=== PATIENT | female | born 1950 | race Caucasian/White ===

== ENCOUNTER 2017-07-30 00:13 | Inpatient (IN) | payer MEDICARE ==
[~2017-07-30] VITALS: Ht 165.1 cm; Wt 105.0 kg
[2017-07-30] VITALS (10 sets, daily range): BP systolic 100–131; BP diastolic 51–88; PULSE 58–74; RESP 16–22; TEMP 97.3–98.8; O2SAT 93–100
[~2017-07-30 00:13] MED LIST: AMLO5TAB2 PO; ASPI81TA23 PO; CARB45TA PO; GABA100C4 PO; GLIM2TAB PO; LEVO50TA4 PO; LOSA100T PO; METF1000 PO; METO50TA PO; MULTTAB67 PO; OXYM30SP8 EACH NARE; SERT-129 PO; SITA1TAB2 PO; ZOCO20TA PO
[2017-07-30] MEDS ORDERED: SODIUM CHLORIDE 0.9% FLUSH 5 ML FLUSH IV FLUSH PRN (00:45)
[2017-07-30 01:13] LABS: AUTOMATED NEUTROPHIL # 7.9 TH/MM3 (1.8-7.7); BASOPHIL # 0.1 TH/MM3 (0-0.2); BASOPHIL % 0.6 % (0.0-2.0); EOSINOPHIL % 0.5 % (0.0-4.0); HEMATOCRIT 33.5 % (35.0-46.0); HEMO FLAGS DIFF FINAL; LYMPH % 8.2 % (9.0-44.0); LYMPHOCYTE # 0.8 TH/MM3 (1.0-4.8); MEAN CELL VOLUME 87.6 FL (80.0-100.0); MEAN CORPUSCULAR HEMOGLOBIN 28.9 PG (27.0-34.0); NEUT % 85.7 % (16.0-70.0); PLATELET COUNT 279 TH/MM3 (150-450); RED BLOOD COUNT 3.82 MIL/MM3 (4.00-5.30); RED CELL DISTRIBUTION WIDTH 16.8 % (11.6-17.2); WHITE BLOOD COUNT 9.2 TH/MM3 (4.0-11.0)
--- NOTE | 2017-07-30 01:20 | PD ---
HPI Chief Complaint: Altered Mental Status Time Seen by Provider: 00:19 Travel History International Travel<30 days: No Contact w/Intl Traveler<30days: No Traveled to known affect area: No History of Present Illness HPI The patient is a 67-year-old female who presents emergency department via EMS for altered mental status. According to EMS the patient had altered mental status at home, was noted to have a blood glucose of 30 was administered D50 prior to arrival. Upon arrival the patient was GCS of 15 and answering questions appropriately. Family members at bedside state the patient was recently evaluated at the [facility] for cirrhosis of the liver. She was prescribed lactulose to take for hepatic encephalopathy, however, did not take it earlier tonight because she did not feel well and did not want to get out of bed to go to the bathroom for possible diarrhea. The patient does take multiple medications for diabetes including metformin and an oral sulfonylurea. The patient states she took her oral sulfonylurea this morning and this evening, but denies any history of recurrent hypoglycemia with her medications. The patient now states that she feels well, wants to return home. PFSH Past Medical History Narrative Medical Diabetes, cirrhosis, ascites Past Surgical History Narrative Surgical Previous paracentesis Social History Tobacco Use: No Allergies-Medications (Allergen,Severity, Reaction): Coded Allergies: cephalexin (Unverified Allergy, Severe, Rash, 04/15/17) penicillin G (Unverified Allergy, Severe, Hives, 04/15/17) acetaminophen (Unverified Adverse Reaction, Severe, NAUSEA, 04/15/17) codeine (Unverified Adverse Reaction, Severe, NAUSEA, 04/15/17) oxycodone (Unverified Adverse Reaction, Severe, NAUSEA, 04/15/17) Reported Meds & Prescriptions Reported Meds & Active Scripts Active Reported Zocor (Simvastatin) 20 Mg Tab 20 Mg PO DAILY Sertraline (Sertraline HCl) 100 Mg Tab 100 Mg PO DAILY Multiple Vitamin 1 Tab 1 Tab PO DAILY Metoprolol Tartrate 50 Mg Tab 50 Mg PO BID Metformin (Metformin HCl) 1,000 Mg Tab 1,000 Mg PO BIDPC With meals Losartan (Losartan Potassium) 100 Mg Tab 100 Mg PO DAILY Levothyroxine (Levothyroxine Sodium) 50 Mcg Tab 50 Mcg PO DAILY Januvia (Sitagliptin Phosphate) 100 Mg Tab 100 Mg PO DAILY Glimepiride 2 Mg Tab 2 Mg PO BIDAC Gabapentin 100 Mg Cap 100 Mg PO HS Feosol (Iron,Carbonyl) 45 Mg Tablet 65 Mg PO DAILY Nasal [place] (Oxymetazoline HCl) 0.05 % Spr 1 [place] EACH NARE DAILY Aspirin EC (Aspirin) 81 Mg Tabdr 81 Mg PO DAILY Amlodipine (Amlodipine Besylate) 5 Mg Tab 5 Mg PO DAILY Review of Systems Except as stated in HPI: all other systems reviewed are Neg General / Constitutional: No: Fever Cardiovascular: No: Chest Pain or Discomfort Respiratory: No: Shortness of Breath Gastrointestinal: No: Nausea, Vomiting, Abdominal Pain Musculoskeletal: No: Weakness Neurologic: Positive: Change in Mentation Physical Exam Narrative GENERAL: Awake, alert, pleasant 67-year-old female who appears her stated age and is in no acute respiratory distress. SKIN: Focused skin assessment warm/dry. HEAD: Atraumatic. Normocephalic. EYES: Pupils equal and round. No scleral icterus. No injection or drainage. ENT: No nasal bleeding or discharge. Mucous membranes pink and moist. NECK: Trachea midline. No JVD. CARDIOVASCULAR: Regular rate and rhythm. No murmur appreciated. RESPIRATORY: No accessory muscle use. Clear to auscultation. Breath sounds equal bilaterally. GASTROINTESTINAL: Abdomen soft, obese, no rebound tenderness. MUSCULOSKELETAL: No obvious deformities. No clubbing. No cyanosis. No edema. NEUROLOGICAL: Awake and alert. No obvious cranial nerve deficits. Motor grossly within normal limits. Normal speech. Patient is alert and oriented 5. Follows commands without difficulty. Nonfocal. PSYCHIATRIC: Appropriate mood and affect; insight and judgment normal. Data Data Last Documented VS Vital Signs Date Time Temp Pulse Resp B/P (MAP) Pulse Ox O2 Delivery O2 Flow Rate FiO2 07/30/17 01:19 98 Room Air 07/30/17 00:30 62 20 117/61 (79) Orders Orders Ammonia (07/30/17 00:45) Complete Blood Count With Diff (07/30/17 00:45) Comprehensive Metabolic Panel (07/30/17 00:45) Urinalysis - C+S If Indicated (07/30/17 00:45) Blood Glucose (07/30/17 00:45) Ecg Monitoring (07/30/17 00:45) Iv Access Insert/Monitor (07/30/17 00:45) Oximetry (07/30/17 00:45) Sodium Chloride 0.9% Flush (Ns Flush) (07/30/17 00:45) Admit Order (Ed Use Only) (07/30/17 02:36) Labs Laboratory Tests Test 07/30/17 00:57 White Blood Count 9.2 TH/MM3 Red Blood Count 3.82 MIL/MM3 Hemoglobin 11.0 GM/DL Hematocrit 33.5 % Mean Corpuscular Volume 87.6 FL Mean Corpuscular Hemoglobin 28.9 PG Mean Corpuscular Hemoglobin Concent 33.0 % Red Cell Distribution Width 16.8 % Platelet Count 279 TH/MM3 Mean Platelet Volume 8.2 FL Neutrophils (%) (Auto) 85.7 % Lymphocytes (%) (Auto) 8.2 % Monocytes (%) (Auto) 5.0 % Eosinophils (%) (Auto) 0.5 % Basophils (%) (Auto) 0.6 % Neutrophils # (Auto) 7.9 TH/MM3 Lymphocytes # (Auto) 0.8 TH/MM3 Monocytes # (Auto) 0.5 TH/MM3 Eosinophils # (Auto) 0.0 TH/MM3 Basophils # (Auto) 0.1 TH/MM3 CBC Comment DIFF FINAL Differential Comment Blood Urea Nitrogen 51 MG/DL Creatinine 1.53 MG/DL Random Glucose 60 MG/DL Total Protein 6.8 GM/DL Albumin 3.0 GM/DL Calcium Level 9.1 MG/DL Alkaline Phosphatase 49 U/L Aspartate Amino Transf (AST/SGOT) 24 U/L Alanine Aminotransferase (ALT/SGPT) 23 U/L Total Bilirubin 0.2 MG/DL Sodium Level 128 MEQ/L Potassium Level 5.2 MEQ/L Chloride Level 96 MEQ/L Carbon Dioxide Level 22.9 MEQ/L Anion Gap 9 MEQ/L Estimat Glomerular Filtration Rate 34 ML/MIN Ammonia 16 MCMOL/L [facility] Medical Decision Making Medical Screen Exam Complete: Yes Emergency Medical Condition: Yes Medical Record Reviewed: Yes Interpretation(s) Laboratory Tests Test 07/30/17 00:57 White Blood Count 9.2 TH/MM3 Red Blood Count 3.82 MIL/MM3 Hemoglobin 11.0 GM/DL Hematocrit 33.5 % Mean Corpuscular Volume 87.6 FL Mean Corpuscular Hemoglobin 28.9 PG Mean Corpuscular Hemoglobin Concent 33.0 % Red Cell Distribution Width 16.8 % Platelet Count 279 TH/MM3 Mean Platelet Volume 8.2 FL Neutrophils (%) (Auto) 85.7 % Lymphocytes (%) (Auto) 8.2 % Monocytes (%) (Auto) 5.0 % Eosinophils (%) (Auto) 0.5 % Basophils (%) (Auto) 0.6 % Neutrophils # (Auto) 7.9 TH/MM3 Lymphocytes # (Auto) 0.8 TH/MM3 Monocytes # (Auto) 0.5 TH/MM3 Eosinophils # (Auto) 0.0 TH/MM3 Basophils # (Auto) 0.1 TH/MM3 CBC Comment DIFF FINAL Differential Comment Blood Urea Nitrogen 51 MG/DL Creatinine 1.53 MG/DL Random Glucose 60 MG/DL Total Protein 6.8 GM/DL Albumin 3.0 GM/DL Calcium Level 9.1 MG/DL Alkaline Phosphatase 49 U/L Aspartate Amino Transf (AST/SGOT) 24 U/L Alanine Aminotransferase (ALT/SGPT) 23 U/L Total Bilirubin 0.2 MG/DL Sodium Level 128 MEQ/L Potassium Level 5.2 MEQ/L Chloride Level 96 MEQ/L Carbon Dioxide Level 22.9 MEQ/L Anion Gap 9 MEQ/L Estimat Glomerular Filtration Rate 34 ML/MIN Ammonia 16 MCMOL/L Differential Diagnosis Differential diagnoses includes hypoglycemia, medication side effect, soft on area side effect, hepatic encephalopathy, renal sufficiency, hepatic insufficiency. Narrative Course IV was established, labs are drawn and sent, and the patient was placed on cardiac telemetry monitoring and continuous pulse oximetry monitoring. I had a discussion with the patient regarding the fact that she is on oral sulfonylurea and should probably be a 23 hour observation as she has underlying hepatic insufficiency and possibly underlying nephritic insufficiency, and the half- life of her oral sulfonylurea may be anywhere from 8-24 hours. However, patient is adamant that she does not want to stay in the hospital. She was alert and oriented 5, the family wants the patient to stay is a 23 hour off, however, the patient does not want to stay in the hospital. After discussion it was agreed that she would be fed a meal and have Accu-Cheks every hour 3. However, the patient's blood sugar fell to 59 despite eating a large meal. The patient is on a sulfonylurea with hypoglycemia, will need 23 hour observation for blood sugar evaluation every hour until stabilized. Therefore, the patient will be placed intensive care unit as she will need Q1 Accu-Cheks until sugars are stable. I discussed the patient with the activities officer, Dr. Yusuf, who agrees with admission. Physician Communication Physician Communication I discussed the patient Dr. Yusuf who agrees with 23 hour observation. Diagnosis Primary Impression: Hypoglycemia Admitting Information Admitting Physician Requests: Observation Condition: Stable Lyndon Turk MD Jul 30, 2017 01:20
[2017-07-30 01:32] LABS: ALKALINE PHOSPHATASE 49 U/L (45-117); TOTAL BILIRUBIN ADULT 0.2 MG/DL (0.2-1.0)
[2017-07-30 01:38] LABS: ALT (GPT) 23 U/L (10-53); ANION GAP 9 MEQ/L (5-15); AST (GOT) 24 U/L (15-37); BICARBONATE 22.9 MEQ/L (21.0-32.0); BLOOD UREA NITROGEN 51 MG/DL (7-18); CHLORIDE 96 MEQ/L (98-107); GLOMERULAR FILTRATION RATE 34 ML/MIN (>89); POTASSIUM 5.2 MEQ/L (3.5-5.1); SODIUM (NA) 128 MEQ/L (136-145)
[2017-07-30] MEDS ORDERED: BISACODYL 10 MG SUPP RECTAL PRN (03:00)
[2017-07-30] MEDS ORDERED: ONDANSETRON HCL 4 MG/2 ML VIAL IV PUSH PRN (03:00)
[2017-07-30] MEDS ORDERED: DEXTROSE 50% IN WATER 50 ML SYRINGE IV PUSH ONE (03:00)
[2017-07-30] MEDS ORDERED: LACTULOSE SYRUP 20 GM/30 ML CUP PO PRN (03:00)
[2017-07-30] MEDS ORDERED: MAGNESIUM HYDROXIDE SUSP 30 ML CUP PO PRN (03:00)
[2017-07-30] MEDS ORDERED: ACETAMINOPHEN 325 MG TAB PO PRN (03:00)
[2017-07-30] MEDS ORDERED: CHLORHEXIDINE GLUCONATE 2 % 1 PACK (2 CLOTHS) TOP PRN (03:00)
[2017-07-30] MEDS ORDERED: RESP: ALBUTEROL 2.5 MG/IPRATROPIUM 0.5 MG NEB (PRN) INH (03:00)
[2017-07-30] MEDS ORDERED: SODIUM CHLOR 0.9% 1000 ML INJ 1,000 ML IV SCH (03:00)
[2017-07-30] MEDS ORDERED: MISCELLANEOUS NURSING INFORMATION XX SCH (03:00)
[2017-07-30] MEDS ORDERED: GLUCAGON 1 MG/ML VIAL OTHER PRN (03:00)
[2017-07-30] MEDS ORDERED: SENNOSIDES 8.6 MG TAB PO PRN (03:00)
[2017-07-30] MEDS ORDERED: SODIUM CHLORIDE 0.9% FLUSH 10 ML FLUSH IV FLUSH PRN (03:00)
[2017-07-30] MEDS ORDERED: DEXTROSE 50% IN WATER 50 ML VIAL(D50) IV PUSH PRN (03:00)
[2017-07-30] MEDS: CHLORHEXIDINE GLUCONATE 2 % 1 PACK (2 CLOTHS) TOP SCH (04:00)
--- NOTE | 2017-07-30 04:20 | HHI.HP ---
HPI Service Critical Care Medicine Primary Care Physician Boris Shell M.D. Admission Diagnosis hypoglycemia on sulfonylurea Diagnosis: Travel History International Travel<30 Days: No Contact w/Intl Traveler <30 Da: No Traveled to Known Affected Are: No History of Present Illness 67-year-old very pleasant female with nonalcoholic liver cirrhosis, type 2 diabetes presents for altered mental status. According to EMS the patient had altered mental status at home, was noted to have a blood glucose of 30 was administered D50 prior to arrival. Upon arrival the patient was GCS of 15 and answering questions appropriately. Family members at bedside state the patient was recently evaluated at the [facility] for cirrhosis of the liver and is considered to be a liver transplant candidate. She was prescribed lactulose to take for hepatic encephalopathy, however, did not take it earlier tonight because she did not feel well and did not want to get out of bed to go to the bathroom for possible diarrhea. The patient does take multiple medications for diabetes including metformin and an oral sulfonylurea and was told she needs transition to insulin regiment however continues taking her by mouth meds. The patient states she took her oral sulfonylurea this morning and this evening, but denies any history of recurrent hypoglycemia with her medications in the past. In the emergency department she suffered another episode of hypoglycemia requiring D50 injection. Review of Systems Constitutional: COMPLAINS OF: Diaphoretic episodes, Fatigue, DENIES: Fever, Weight gain, Weight loss, Chills, Dizziness, Change in appetite, Night Sweats Endocrine: DENIES: Abnorml menstrual pattern, Heat/cold intolerance, Polydipsia , Polyuria, Polyphagia Eyes: DENIES: Blurred vision, Diplopia, Eye inflammation, Eye pain, Vision loss , Photosensitivity, Double Vision Ears, nose, mouth, throat: DENIES: Tinnitus, Hearing loss, Vertigo, Nasal discharge, Oral lesions, Throat pain, Hoarseness, Ear Pain, Running Nose, Epistaxis, Sinus Pain, Toothache, Odynophagia Respiratory: DENIES: Apneas, Cough, Snoring, Wheezing, Hemoptysis, Sputum production, Shortness of breath Cardiovascular: DENIES: Chest pain, Palpitations, Syncope, Dyspnea on Exertion , PND, Lower Extremity Edema, Orthopnea, Claudication Gastrointestinal: DENIES: Abdominal pain, Black stools, Bloody stools, Constipation, Diarrhea, Nausea, Vomiting, Difficulty Swallowing, Anorexia Genitourinary: DENIES: Abnormal vaginal bleeding, Dysmenorrhea, Dyspareunia, Sexual dysfunction, Urinary frequency, Urinary incontinence, Urgency, Hematuria , Dysuria, Nocturia, Vaginal discharge Musculoskeletal: DENIES: Joint pain, Muscle aches, Stiffness, Joint Swelling, Back pain, Neck pain Integumentary: DENIES: Abnormal pigmentation, Pruritus, Rash, Nail changes, Breast masses, Breast skin changes, Nipple discharge Hematologic/lymphatic: DENIES: Bruising, Lymphadenopathy Immunologic/allergic: DENIES: Eczema, Urticaria Neurologic: COMPLAINS OF: Poor Balance, DENIES: Abnormal gait, Headache, Localized weakness, Paresthesias, Seizures, Speech Problems, Tremor Psychiatric: DENIES: Anxiety, Confusion, Mood changes, Depression, Hallucinations, Agitation, Suicidal Ideation, Homicidal Ideation, Delusions Past Family Social History Allergies: Coded Allergies: cephalexin (Unverified Allergy, Severe, Rash, 04/15/17) penicillin G (Unverified Allergy, Severe, Hives, 04/15/17) acetaminophen (Unverified Adverse Reaction, Severe, NAUSEA, 04/15/17) codeine (Unverified Adverse Reaction, Severe, NAUSEA, 04/15/17) oxycodone (Unverified Adverse Reaction, Severe, NAUSEA, 04/15/17) Past Medical History Diabetes, cirrhosis, ascites Past Surgical History Previous paracentesis Reported Medications Reported Meds & Active Scripts Active Reported Zocor (Simvastatin) 20 Mg Tab 20 Mg PO DAILY Sertraline (Sertraline HCl) 100 Mg Tab 100 Mg PO DAILY Multiple Vitamin 1 Tab 1 Tab PO DAILY Metoprolol Tartrate 50 Mg Tab 50 Mg PO BID Metformin (Metformin HCl) 1,000 Mg Tab 1,000 Mg PO BIDPC With meals Losartan (Losartan Potassium) 100 Mg Tab 100 Mg PO DAILY Levothyroxine (Levothyroxine Sodium) 50 Mcg Tab 50 Mcg PO DAILY Januvia (Sitagliptin Phosphate) 100 Mg Tab 100 Mg PO DAILY Glimepiride 2 Mg Tab 2 Mg PO BIDAC Gabapentin 100 Mg Cap 100 Mg PO HS Feosol (Iron,Carbonyl) 45 Mg Tablet 65 Mg PO DAILY Nasal [place] (Oxymetazoline HCl) 0.05 % Spr 1 [place] EACH NARE DAILY Aspirin EC (Aspirin) 81 Mg Tabdr 81 Mg PO DAILY Amlodipine (Amlodipine Besylate) 5 Mg Tab 5 Mg PO DAILY Active Ordered Medications Current Medications Medications (Trade) Dose Ordered Sig/Gabriela Route PRN Reason Start Time Stop Time Status Last Admin Dose Admin IV Flush (NS Flush) 2 ml UNSCH PRN IV FLUSH FLUSH AFTER USING IV ACCESS 07/30/17 00:45 Amlodipine Besylate (Norvasc) 5 mg DAILY PO 07/30/17 09:00 Aspirin (Ecotrin Ec) 81 mg DAILY PO 07/30/17 09:00 Gabapentin (Neurontin) 100 mg HS PO 07/30/17 21:00 Levothyroxine Sodium (Synthroid) 50 mcg DAILY@0700 PO 07/30/17 07:00 Metoprolol Tartrate (Lopressor) 50 mg BID PO 07/30/17 09:00 Oxymetazoline HCl (Afrin 0.05% [place]) 1 spray DAILY EACH NARE 07/30/17 09:00 Sertraline HCl (Zoloft) 100 mg DAILY PO 07/30/17 09:00 Ferrous Sulfate (Ferrous Sulfate) 325 mg DAILY PO 07/30/17 09:00 Multivitamins (Theragran) 1 tab DAILY PO 07/30/17 09:00 Pravastatin Sodium (Pravachol) 40 mg DAILY PO 07/30/17 09:00 Sodium Chloride (NS Flush) 2 ml UNSCH PRN IV FLUSH FLUSH AFTER USING IV ACCESS 07/30/17 03:00 Sodium Chloride (NS Flush) 2 ml BID IV FLUSH 07/30/17 09:00 Acetaminophen (Tylenol) 650 mg Q6H PRN PO PAIN 1-10 AND/OR FEVER >101F 07/30/17 03:00 Ondansetron HCl (Zofran Inj) 4 mg Q6H PRN IV PUSH NAUSEA OR VOMITING 07/30/17 03:00 Albuterol/ Ipratropium (Duoneb Neb) 1 ampule Q2HR NEB PRN INH WHEEZING 07/30/17 03:00 Miscellaneous Information 1 [id number] XX 07/30/17 03:00 Chlorhexidine Gluconate (Chlorhexidine 2% Cloth) 3 pack Taper DAILY@04 TOP 07/30/17 04:00 07/26/18 03:59 Chlorhexidine Gluconate (Chlorhexidine 2% Cloth) 3 pack UNSCH PRN TOP HYGIENIC CARE 07/30/17 03:00 Senna/Docusate Sodium (Jen-Colace) 1 tab BID PO 07/30/17 09:00 Magnesium Hydroxide (Milk Of Magnesia Liq) 30 ml Q12H PRN PO Mild constipation 07/30/17 03:00 Sennosides (Senokot) 17.2 mg Q12H PRN PO Moderate constipation 07/30/17 03:00 Bisacodyl (Dulcolax Supp) 10 mg DAILY PRN RECTAL SEVERE CONSITIPATION/ IF NPO 07/30/17 03:00 Lactulose (Lactulose Liq) 30 ml DAILY PRN PO SEVERE CONSITIPATION/ IF PO 07/30/17 03:00 Dextrose (D50w (Vial) Inj) 50 ml UNSCH PRN IV PUSH HYPOGLYCEMIA-SEE COMMENTS 07/30/17 03:00 Glucagon (Glucagon Inj) 1 mg UNSCH PRN OTHER HYPOGLYCEMIA-SEE COMMENTS 07/30/17 03:00 Insulin Aspart (NovoLOG SUPPLEMENTAL SCALE) 1 ACHS SLIDING SCALE SQ 07/30/17 08:00 Sodium Chloride 1,000 ml @ 84 mls/hr [id number] IV 07/30/17 03:00 07/30/17 03:14 Family History No family history of liver failure Social History Negative for tobacco, alcohol, or illicit drug abuse Physical Exam Vital Signs Vital Signs Date Time Temp Pulse Resp B/P (MAP) Pulse Ox O2 Delivery O2 Flow Rate FiO2 07/30/17 03:09 60 16 122/63 (82) 100 Room Air 07/30/17 01:19 98 Room Air 07/30/17 00:30 62 20 117/61 (79) 100 Physical Exam GENERAL: Well-nourished, well-developed patient. SKIN: Warm and dry. HEAD: Normocephalic. EYES: No scleral icterus. No injection or drainage. NECK: Supple, trachea midline. No JVD or lymphadenopathy. CARDIOVASCULAR: Regular rate and rhythm without murmurs, gallops, or rubs. RESPIRATORY: Breath sounds equal bilaterally. No accessory muscle use. GASTROINTESTINAL: Abdomen soft, non-tender, nondistended. MUSCULOSKELETAL: No cyanosis, or edema. BACK: Nontender without obvious deformity. NEURO EXAM: Mental Status: The patient is alert and oriented to person, place, and time with normal speech. Cranial Nerves: Visual acuity intact bilaterally. Visual palm normal in all quadrants. Pupils are round, reactive to light. Extraocular movements are intact without ptosis. Hearing is normal bilaterally. Voice is normal. Tongue protrudes midline and moves symmetrically. Reflexes: Biceps, patellar, and Achilles are 2/4 bilaterally. No clonus. Laboratory Laboratory Tests Test 07/30/17 00:57 White Blood Count 9.2 Red Blood Count 3.82 Hemoglobin 11.0 Hematocrit 33.5 Mean Corpuscular Volume 87.6 Mean Corpuscular Hemoglobin 28.9 Mean Corpuscular Hemoglobin Concent 33.0 Red Cell Distribution Width 16.8 Platelet Count 279 Mean Platelet Volume 8.2 Neutrophils (%) (Auto) 85.7 Lymphocytes (%) (Auto) 8.2 Monocytes (%) (Auto) 5.0 Eosinophils (%) (Auto) 0.5 Basophils (%) (Auto) 0.6 Neutrophils # (Auto) 7.9 Lymphocytes # (Auto) 0.8 Monocytes # (Auto) 0.5 Eosinophils # (Auto) 0.0 Basophils # (Auto) 0.1 CBC Comment DIFF FINAL Differential Comment Blood Urea Nitrogen 51 Creatinine 1.53 Random Glucose 60 Total Protein 6.8 Albumin 3.0 Calcium Level 9.1 Alkaline Phosphatase 49 Aspartate Amino Transf (AST/SGOT) 24 Alanine Aminotransferase (ALT/SGPT) 23 Total Bilirubin 0.2 Sodium Level 128 Potassium Level 5.2 Chloride Level 96 Carbon Dioxide Level 22.9 Anion Gap 9 Estimat Glomerular Filtration Rate 34 Ammonia 16 Result Diagram: 07/30/17 0057 07/30/17 005 Caprini VTE Risk Assessment Caprini VTE Risk Assessment: No/Low Risk (score <= 1) Caprini Risk Assessment Model Point Value = 1 Point Value = 2 Point Value = 3 Point Value = 5 Age 41-60 Minor surgery BMI > 25 kg/m2 Swollen legs Varicose veins or History of unexplained or recurrent spontaneous Oral contraceptives or hormone replacement Sepsis (< 1 month) Serious lung disease, including pneumonia (< 1 month) Abnormal pulmonary function Acute myocardial infarction Congestive heart failure (< 1 month) History of inflammatory bowel disease Medical patient at bed rest Age 61-74 Arthroscopic surgery Major open surgery (> 45 min) Laparoscopic surgery (> 45 min) Malignancy Confined to bed (> 72 hours) Immobilizing plaster cast Central venous access Age >= 75 History of VTE Family history of VTE Factor V Leiden Prothrombin [id number] Lupus anticoagulant Anticardiolipin antibodies Elevated serum homocysteine Heparin-induced thrombocytopenia Other congenital or acquired thrombophilia Stroke (< 1 month) Elective arthroplasty Hip, pelvis, or leg fracture Acute spinal cord injury (< 1 month) Prophylaxis Regimen Total Risk Factor Score Risk Level Prophylaxis Regimen 0-1 Low Early ambulation 2 Moderate Order ONE of the following: *Sequential Compression Device (SCD) *Heparin 5000 units SQ BID 3-4 Higher Order ONE of the following medications: *Heparin 5000 units SQ TID *Enoxaparin/Lovenox 40 mg SQ daily (WT < 150 kg, CrCl > 30 mL/min) *Enoxaparin/Lovenox 30 mg SQ daily (WT < 150 kg, CrCl > 10-29 mL/min) *Enoxaparin/Lovenox 30 mg SQ BID (WT < 150 kg, CrCl > 30 mL/min) AND/OR *Sequential Compression Device (SCD) 5 or more Highest Order ONE of the following medications: *Heparin 5000 units SQ TID (Preferred with Epidurals) *Enoxaparin/Lovenox 40 mg SQ daily (WT < 150 kg, CrCl > 30 mL/min) *Enoxaparin/Lovenox 30 mg SQ daily (WT < 150 kg, CrCl > 10-29 mL/min) *Enoxaparin/Lovenox 30 mg SQ BID (WT < 150 kg, CrCl > 30 mL/min) AND *Sequential Compression Device (SCD) Assessment and Plan Assessment and Plan Hypoglycemia - Underlying liver cirrhosis - Metformin and sulfonylurea - Every hour glucose checks - D50 when necessary - Hold all by mouth antidiabetic meds Acute kidney injury - Unknown baseline - Hold losartan - Gentle IV hydration Hypertension - Metoprolol - Norvasc - Hold valsartan due to elevated potassium and creatinine levels Depressions - Zoloft Hypothyroidism - Levothyroxine DVT GI prophylaxis - Teds SCDs - Early aggressive mobilization - 1999 ADA diet Critical Care: The total critical care time was 35 minutes. Time to perform other separately billable procedures was not included in the critical care time. Troy Yusuf MD Jul 30, 2017 04:20
[2017-07-30] MEDS: LEVOTHYROXINE SODIUM 50 MCG TAB PO SCH (06:33)
[2017-07-30] MEDS: amLODIPine BESYLATE 5 MG TAB PO SCH (08:44)
[2017-07-30] MEDS: DOCUSATE SODIUM 50 MG/SENNA 8.6 MG TAB PO SCH ×2 (08:44→20:53)
[2017-07-30] MEDS: METOPROLOL TARTRATE 50 MG TAB PO SCH ×2 (08:44→20:53)
[2017-07-30] MEDS: PRAVASTATIN SOD 20 MG TAB PO SCH (08:44)
[2017-07-30] MEDS: FERROUS SULFATE 325 MG (65 MG ELEMENTAL IRON) TAB PO SCH (08:44)
[2017-07-30] MEDS: ASPIRIN EC 81 MG TABEC PO SCH (08:44)
[2017-07-30] MEDS: SODIUM CHLORIDE 0.9% FLUSH 10 ML FLUSH IV FLUSH SCH ×2 (08:45→20:53)
[2017-07-30] MEDS: INSULIN ASPART SUPPLEMENTAL SCALE SQ SCH ×4 (08:46→20:56)
[2017-07-30] MEDS: DEXT 5%-NACL 0.9% 1000 ML INJ 1,000 ML IV SCH ×2 (08:48→20:56)
[2017-07-30] MEDS: SERTRALINE HCL 100 MG TAB PO SCH (09:00)
[2017-07-30] MEDS: MULTIVITAMIN TAB PO SCH (09:00)
[2017-07-30] MEDS: OXYMETAZOLINE HCL 0.05% 15 ML NASAL SPRAY EACH NARE SCH (09:00)
[2017-07-30] MEDS ORDERED: GABAPENTIN 100 MG CAP PO SCH (21:00)
[2017-07-31] VITALS (7 sets, daily range): BP systolic 101–134; BP diastolic 55–67; PULSE 59–68; RESP 18; TEMP 97.6–98.8; O2SAT 96–100
[2017-07-31] MEDS: CHLORHEXIDINE GLUCONATE 2 % 1 PACK (2 CLOTHS) TOP SCH (00:22)
[2017-07-31 03:54] LABS: HEMATOCRIT 36.8 % (35.0-46.0); MEAN CORPUSCULAR HEMOGLOBIN 29.1 PG (27.0-34.0); PLATELET COUNT 318 TH/MM3 (150-450); RED BLOOD COUNT 4.18 MIL/MM3 (4.00-5.30); RED CELL DISTRIBUTION WIDTH 16.9 % (11.6-17.2); WHITE BLOOD COUNT 8.1 TH/MM3 (4.0-11.0)
[2017-07-31 03:55] LABS: HEMO FLAGS AUTO DIFF
[2017-07-31 04:41] LABS: EOSINOPHILS 3 % (0-4); NEUTROPHIL # MANUAL DIFF 5.6 TH/MM3 (1.8-7.7); POLYS (SEG NEUTROPHILS) 69 % (16-70); WBC DIFF SAMPLE 100
[2017-07-31 04:42] LABS: SCAN/DIFF FINAL DIFF MANUAL
[2017-07-31 04:43] LABS: PLATELET ESTIMATE SMEAR NORMAL (NORMAL); PLATELET MORPHOLOGY NORMAL (NORMAL)
[2017-07-31 04:46] LABS: ALKALINE PHOSPHATASE 52 U/L (45-117); ALT (GPT) 22 U/L (10-53); ANION GAP 5 MEQ/L (5-15); AST (GOT) 21 U/L (15-37); BLOOD UREA NITROGEN 41 MG/DL (7-18); CHLORIDE 102 MEQ/L (98-107); GLOMERULAR FILTRATION RATE 35 ML/MIN (>89); MAGNESIUM 2.4 MG/DL (1.5-2.5); POTASSIUM 5.6 MEQ/L (3.5-5.1); SODIUM (NA) 133 MEQ/L (136-145); TOTAL BILIRUBIN ADULT 0.2 MG/DL (0.2-1.0)
[2017-07-31] MEDS: LEVOTHYROXINE SODIUM 50 MCG TAB PO SCH (06:36)
[2017-07-31] MEDS: DEXT 5%-NACL 0.9% 1000 ML INJ 1,000 ML IV SCH (06:36)
[2017-07-31] MEDS: INSULIN ASPART SUPPLEMENTAL SCALE SQ SCH ×2 (08:00→11:58)
[2017-07-31] MEDS: OXYMETAZOLINE HCL 0.05% 15 ML NASAL SPRAY EACH NARE SCH (08:33)
[2017-07-31] MEDS: SODIUM CHLORIDE 0.9% FLUSH 10 ML FLUSH IV FLUSH SCH (08:33)
[2017-07-31] MEDS: PRAVASTATIN SOD 20 MG TAB PO SCH (08:34)
[2017-07-31] MEDS: SERTRALINE HCL 100 MG TAB PO SCH (08:34)
[2017-07-31] MEDS: MULTIVITAMIN TAB PO SCH (08:34)
[2017-07-31] MEDS: DOCUSATE SODIUM 50 MG/SENNA 8.6 MG TAB PO SCH (08:34)
[2017-07-31] MEDS: ASPIRIN EC 81 MG TABEC PO SCH (08:34)
[2017-07-31] MEDS: METOPROLOL TARTRATE 50 MG TAB PO SCH (08:34)
[2017-07-31] MEDS: FERROUS SULFATE 325 MG (65 MG ELEMENTAL IRON) TAB PO SCH (08:35)
[2017-07-31] MEDS: amLODIPine BESYLATE 5 MG TAB PO SCH (08:35)
--- NOTE | 2017-07-31 10:58 | HHI.PR ---
Subjective Remarks Patient reports after she was seen at the [facility] about a week ago, when she returned home she started on a diet high in vegetables and protein, virtually no sugars but continues to take her diabetes medications. She feels great today and wants to go home. Objective Vitals Vital Signs Date Time Temp Pulse Resp B/P (MAP) Pulse Ox O2 Delivery O2 Flow Rate FiO2 07/31/17 08:00 97.6 60 18 131/67 (88) 100 07/31/17 07:00 63 07/31/17 04:00 97.8 59 18 134/64 (87) 97 07/31/17 02:12 68 07/31/17 00:13 98.8 59 18 101/55 (70) 96 07/30/17 20:44 95 Room Air 07/30/17 20:00 97.3 74 18 114/65 (81) 93 07/30/17 18:42 98.2 68 20 127/66 (86) 100 07/30/17 16:00 66 07/30/17 16:00 98.8 66 20 114/64 (81) 94 07/30/17 12:00 97.8 60 20 100/51 (67) 95 07/30/17 12:00 60 I/O 07/30/17 07/30/17 07/30/17 07/31/17 07/31/17 07/31/17 07:00 15:00 23:00 07:00 15:00 23:00 Intake Total 263 ml 171 ml 841 ml 905 ml Output Total 500 ml 2000 ml Balance -237 ml -1829 ml 841 ml 905 ml Intake IV Total 263 ml 171 ml 841 ml 905 ml Output Urine Total 500 ml 2000 ml # Voids 3 Result Diagram: 07/31/17 0346 07/31/17 0346 Objective Remarks GENERAL: Obese female in no apparent distress. CARDIOVASCULAR: Normal rate and regular rhythm without murmurs, gallops, or rubs. RESPIRATORY: Good respiratory efforts. Breath sounds equal and clear to auscultation bilaterally. GASTROINTESTINAL: Abdomen soft, non-tender, non-distended. Normal active bowel sounds MUSCULOSKELETAL: Extremities without cyanosis, or edema. NEURO: Alert & Oriented x4 to person, place, time, situation. Moves all ext x4 PSYCH: Appropriate mood and affect. A/P Assessment and Plan 67-year-old female admitted with marked hypoglycemia. The patient recently changed her diet cutting out all sugars and she continued to take metformin, Januvia and glimepiride. Hypoglycemia: Medication induced. -Status post D50. Patient was given a diet. Her blood sugar improved. Fluid discontinued. She was advised to stop taking Januvia and glimepiride. She has a follow-up appointment with her video tape transferrer tomorrow. - We'll continue to monitor blood glucose today. If remains stable in the afternoon, she can be discharged home. Acute kidney injury - ? Baseline kidney dysfunction. Improved with fluid. Advised outpatient follow-up. Hypertension Continue home antihypertensives. Depressions - And tinea Zoloft Hypothyroidism - Levothyroxine Blood glucose remained stable. Okay to discharge home in good condition Activity: Regular as tolerated Diet: Diabetic Follow-up: With PCP. Follow-up with your video tape transferrer tomorrow. Meds: Per med rec. Stop taking Januvia and glimepiride. Elliot Kasper MD Jul 31, 2017 10:58
--- NOTE | 2017-07-31 15:25 | HHI.DCPOC ---
Discharge Care Plan Diagnosis: (1) Hypoglycemia (2) Cirrhosis (3) Hypertension Goals to Promote Your Health * To prevent worsening of your condition and complications * To maintain your health at the optimal level Directions to Meet Your Goals Take your medications as prescribed Follow your dietary instruction Follow activity as directed Keep your appointments as scheduled Take your immunizations and boosters as scheduled If your symptoms worsen call your PCP, if no PCP go to Urgent Care Center or Emergency Room Smoking is Dangerous to Your Health. Avoid second hand smoke Call the 24-hour hour crisis hotline for domestic abuse at Elliot Kasper MD Jul 31, 2017 15:25
[2017-07-31 17:12] LABS: HEMOGLOBIN A1a 1.4 %; HEMOGLOBIN A1b 1.9 %; HEMOGLOBIN Ao 84.9 %; HEMOGLOBIN LA1C 2.1 %; HEMOGLOBIN P3 5.4 %
== END 2017-07-31 18:51 | disposition home or self-care (01) | DRG 639 ==
LOC: NEPE 00:13 → NEDA 02:38 → OBSVTOIN 02:57 → HIMW 04:30 → N05B 18:01
PROVIDERS: ADMIT Family Medicine; ATTEND Family Medicine
DX: E11.649 Type 2 diabetes mellitus with hypoglycemia without coma (principal); N17.9 Acute kidney failure, unspecified; K74.60 Unspecified cirrhosis of liver; I10 Essential (primary) hypertension; E03.9 Hypothyroidism, unspecified; F32.9 Major depressive disorder, single episode, unspecified; Z79.84 Long term (current) use of oral hypoglycemic drugs; Z88.0 Allergy status to penicillin; Z88.5 Allergy status to narcotic agent
CPT/HCPCS: 80053; 82140; 82948; 83036; 83735; 84100; 85007; 85025; 85027; 87641; 99285; J7030; J7042